=== PATIENT | female | born 1940 | race African-American/Black ===

== ENCOUNTER 2021-01-03 12:47 | Inpatient (IN) ==
[2021-01-03] MEDS ORDERED: ONDANSETRON ODT 4 MG TABLET PO STA (15:15)
[2021-01-03 16:37] LABS: Basophils % 0.3 % (0.0-0.8); Hematocrit 40.6 VOL% (35.7-47.0); Hemoglobin 13.5 GM/DL (12.0-16.0); Lymphocytes # 0.9 10*3/uL (1.4-4.0); Lymphocytes % 31.5 % (21.3-54.2); Mean Corpuscular HGB Conc 33.3 GM/DL (32-36); Mean Corpuscular Volume 88.6 FL (87-102); Mean Platelet Volume 10.9 FL (9.6-12.0); Monocytes % 6.2 % (1.7-12.7); Platelet Count 176 T/CUMM (130-400); Red Blood Count 4.58 MC/CUMM (3.8-5.5); Red Cell Distribution Width 13.3 % (9.3-17.3); White Blood Count 2.9 T/CUMM (4-12)
[2021-01-03 17:00] LABS: Albumin 3.5 G/DL (3.4-5.0); Bilirubin,Total 0.4 MG/DL (0.20-1.00); Calcium 8.8 MG/DL (8.5-10.1); Osmolality,Calculated 268.2 MOS/KG (273-304); Potassium 4.1 MMOL/L (3.5-5.1); Total Protein 7.6 G/DL (6.4-8.2)
[2021-01-03 17:03] LABS: Ferritin 347.7 ng/ml (8-252)
[2021-01-03] MEDS ORDERED: GLUCAGON 1 MG VIAL IM PRN (17:50)
[2021-01-03] MEDS ORDERED: ALUMINUM/MAGNES/SIMETH MAX STR 30 ML UDCUP PO PRN (17:50)
[2021-01-03] MEDS ORDERED: DEXTROSE 50% 25 GM/50 ML VIAL IV PRN (17:50)
[2021-01-03] MEDS ORDERED: AZITHROMYCIN INJ 500 MG in SODIUM CHLORIDE 0.9% 250 ML IV ONE (17:52)
[2021-01-03] MEDS ORDERED: SODIUM CHLORIDE 0.9% 250 ML IV ONE (19:36)
[2021-01-03] MEDS: ASCORBIC ACID 500 MG TABLET PO SCH (22:29)
[2021-01-03] MEDS: FAMOTIDINE 20 MG TABLET PO SCH (22:29)
[2021-01-04 04:16] LABS: Hematocrit 39.7 VOL% (35.7-47.0); Hemoglobin 13.3 GM/DL (12.0-16.0); Immature Granulocytes % 0.3 %; Immature Granulocytes Absolute 0.01 #; Lymphocytes # 1.2 10*3/uL (1.4-4.0); Lymphocytes % 38.9 % (21.3-54.2); Mean Corpuscular HGB Conc 33.5 GM/DL (32-36); Mean Platelet Volume 10.5 FL (9.6-12.0); Monocytes % 5.5 % (1.7-12.7); Neutrophils % 55.3 % (38.7-73.9); Platelet Count 184 T/CUMM (130-400); Red Blood Count 4.46 MC/CUMM (3.8-5.5); Red Cell Distribution Width 13.2 % (9.3-17.3); White Blood Count 3.1 T/CUMM (4-12)
[2021-01-04 04:44] LABS: Hypochromasia Slight; Lymphocytes 45 % (20-55); Microcytosis Slight; Platelet Estimate Adequate; Segmented Neutrophils 52 % (50-85); Total Cells Counted 100
[2021-01-04 04:48] LABS: Calcium 8.8 MG/DL (8.5-10.1); Ferritin 375.4 ng/ml (8-252); Osmolality,Calculated 265.4 MOS/KG (273-304); Potassium 3.7 MMOL/L (3.5-5.1); Thyroid Stimulating Hormone 2.42 uIU/ml (0.358-3.74)
[2021-01-04] MEDS: DEXAMETHASONE 4 MG/1 ML VIAL IV SCH (08:56)
[2021-01-04] MEDS: ASCORBIC ACID 500 MG TABLET PO SCH ×2 (08:58→22:12)
[2021-01-04] MEDS: PANTOPRAZOLE 40 MG TABLET PO SCH (08:58)
[2021-01-04] MEDS: CHOLECALCIFEROL 1,000 UNIT TABLET PO SCH (08:58)
[2021-01-04] MEDS: FAMOTIDINE 20 MG TABLET PO SCH ×2 (08:58→22:12)
[2021-01-04] MEDS: ZINC GLUCONATE 50 MG TABLET PO SCH (08:58)
[2021-01-04] MEDS: ONDANSETRON 4 MG/2 ML VIAL IV PRN ×2 (10:21→23:56)
[2021-01-04] MEDS: IVERMECTIN 3 MG TABLET PO SCH (10:54)
[2021-01-05] MEDS: ONDANSETRON 4 MG/2 ML VIAL IV PRN ×2 (03:15→20:28)
[2021-01-05 06:27] LABS: Hemoglobin 13.1 GM/DL (12.0-16.0); Immature Granulocytes % 0.3 %; Immature Granulocytes Absolute 0.01 #; Lymphocytes % 27.7 % (21.3-54.2); Mean Corpuscular HGB Conc 32.8 GM/DL (32-36); Mean Corpuscular Volume 88.1 FL (87-102); Mean Platelet Volume 10.7 FL (9.6-12.0); Monocytes % 3.8 % (1.7-12.7); Neutrophils % 68.2 % (38.7-73.9); Platelet Count 185 T/CUMM (130-400); Red Blood Count 4.54 MC/CUMM (3.8-5.5); Red Cell Distribution Width 13.1 % (9.3-17.3); White Blood Count 3.7 T/CUMM (4-12)
[2021-01-05 06:46] LABS: Ferritin 402.6 ng/ml (8-252)
[2021-01-05 06:51] LABS: Calcium 9.4 MG/DL (8.5-10.1); Osmolality,Calculated 256.9 MOS/KG (273-304); Potassium 4.1 MMOL/L (3.5-5.1)
[2021-01-05 06:57] LABS: Hypochromasia Slight; Lymphocytes 24 % (20-55); Microcytosis Slight; Platelet Estimate Adequate; Segmented Neutrophils 72 % (50-85); Total Cells Counted 100
[2021-01-05] MEDS: FAMOTIDINE 20 MG TABLET PO SCH ×2 (08:34→20:43)
[2021-01-05] MEDS: CHOLECALCIFEROL 1,000 UNIT TABLET PO SCH (08:34)
[2021-01-05] MEDS: PANTOPRAZOLE 40 MG TABLET PO SCH (08:35)
[2021-01-05] MEDS: IVERMECTIN 3 MG TABLET PO SCH (08:35)
[2021-01-05] MEDS: DEXAMETHASONE 4 MG/1 ML VIAL IV SCH (08:35)
[2021-01-05] MEDS: ZINC GLUCONATE 50 MG TABLET PO SCH (08:35)
[2021-01-05] MEDS: ASCORBIC ACID 500 MG TABLET PO SCH ×2 (08:35→20:44)
[2021-01-05] MEDS ORDERED: MAGNESIUM CITRATE 300 ML BOTTLE PO PRN (15:10)
[2021-01-05] MEDS ORDERED: SODIUM PHOSPHATE ENEMA 133 ML BOTTLE RECTAL PRN (15:10)
[2021-01-05] MEDS ORDERED: SODIUM CHLORIDE 0.9% 1,000 ML IV SCH (15:30)
[2021-01-05] MEDS: ENOXAPARIN 40 MG/0.4 ML SYRINGE SUBCUT SCH (16:48)
[2021-01-05] MEDS: POLYETHYLENE GLYCOL POWDER 17 GM PACK PO SCH (16:48)
[2021-01-05] MEDS ORDERED: ALUM/MAG/SIMETH/LIDO VISC 1:1 30 ML BOTTLE PO ONE (21:39)
[2021-01-05 22:15] LABS: Bacteria,Urine Occasional /HPF (Few); Bilirubin,Urine Negative (Negative); Blood, Urine Negative (Negative); Glucose,Urine (UA) Negative (Negative); Hyaline Casts,Urine 1 /LPF (0-3); Ketones,Urine Negative (Negative); Mucus,Urine Occasional /LPF (Occasional); Nitrite,Urine Negative (Negative); Protein,Urine Negative; RBC,Urine 2 /HPF (0-4); Squamous Epithelial Cell,Urine Occasional /HPF (0-10); Urine Appearance CLEAR (Clear); Urine Color Yellow (Yellow); Urine Specific Gravity 1.006 (1.001-1.035); Urine Urobilinogen < 2.0 EU/DL (0.2-1.0)
[2021-01-06] MEDS: ONDANSETRON 4 MG/2 ML VIAL IV PRN (09:31)
[2021-01-06] MEDS: POLYETHYLENE GLYCOL POWDER 17 GM PACK PO SCH (09:32)
[2021-01-06] MEDS: ENOXAPARIN 40 MG/0.4 ML SYRINGE SUBCUT SCH (09:35)
[2021-01-06] MEDS: DEXAMETHASONE 4 MG/1 ML VIAL IV SCH (09:35)
[2021-01-06] MEDS: ASCORBIC ACID 500 MG TABLET PO SCH ×2 (09:36→20:35)
[2021-01-06] MEDS: CHOLECALCIFEROL 1,000 UNIT TABLET PO SCH (09:36)
[2021-01-06] MEDS: ZINC GLUCONATE 50 MG TABLET PO SCH (09:36)
[2021-01-06] MEDS: FAMOTIDINE 20 MG TABLET PO SCH ×2 (09:36→20:35)
[2021-01-06] MEDS: IVERMECTIN 3 MG TABLET PO SCH (09:51)
[2021-01-06 11:45] LABS: Hematocrit 40.5 VOL% (35.7-47.0); Hemoglobin 13.5 GM/DL (12.0-16.0); Immature Granulocytes % 0.3 %; Immature Granulocytes Absolute 0.01 #; Lymphocytes # 0.5 10*3/uL (1.4-4.0); Lymphocytes % 12.6 % (21.3-54.2); Mean Corpuscular HGB Conc 33.3 GM/DL (32-36); Mean Corpuscular Volume 87.3 FL (87-102); Mean Platelet Volume 10.4 FL (9.6-12.0); Monocytes % 3.5 % (1.7-12.7); Neutrophils % 83.6 % (38.7-73.9); Platelet Count 187 T/CUMM (130-400); Red Blood Count 4.64 MC/CUMM (3.8-5.5)
[2021-01-06 12:01] LABS: Calcium 9.4 MG/DL (8.5-10.1); Osmolality,Calculated 271.1 MOS/KG (273-304); Potassium 3.7 MMOL/L (3.5-5.1)
[2021-01-06 13:02] LABS: Platelet Estimate Normal
[2021-01-06 13:03] LABS: Anisocytosis 1+; Burr Cells Few; Ovalocytes Few
[2021-01-06] MEDS ORDERED: ACETAMINOPHEN 325 MG TABLET PO PRN (15:34)
[2021-01-06] MEDS: cefTRIAXone 1,000 MG in SODIUM CHLORIDE 0.9% 100 ML IV SCH (17:08)
[2021-01-06] MEDS: AZITHROMYCIN 250 MG TABLET PO SCH (17:09)
[2021-01-07] MEDS: cefTRIAXone 1,000 MG in SODIUM CHLORIDE 0.9% 100 ML IV SCH ×2 (08:01→15:56)
[2021-01-07] MEDS: DEXAMETHASONE 4 MG TABLET PO SCH (09:36)
[2021-01-07] MEDS: AZITHROMYCIN 250 MG TABLET PO SCH (09:37)
[2021-01-07] MEDS: FAMOTIDINE 20 MG TABLET PO SCH ×2 (09:37→19:20)
[2021-01-07] MEDS: CHOLECALCIFEROL 1,000 UNIT TABLET PO SCH (09:37)
[2021-01-07] MEDS: ASCORBIC ACID 500 MG TABLET PO SCH ×2 (09:37→19:20)
[2021-01-07] MEDS: ZINC GLUCONATE 50 MG TABLET PO SCH (09:37)
[2021-01-07] MEDS: IVERMECTIN 3 MG TABLET PO SCH (09:38)
[2021-01-07] MEDS: POLYETHYLENE GLYCOL POWDER 17 GM PACK PO SCH (09:38)
[2021-01-07] MEDS: ENOXAPARIN 40 MG/0.4 ML SYRINGE SUBCUT SCH (09:38)
[2021-01-07 10:20] LABS: Albumin 3.1 G/DL (3.4-5.0); Bilirubin,Direct 0.11 MG/DL (0.0-0.20); Bilirubin,Total 1.1 MG/DL (0.20-1.00); Calcium 8.9 MG/DL (8.5-10.1); Osmolality,Calculated 272.8 MOS/KG (273-304); Potassium 3.9 MMOL/L (3.5-5.1); Total Protein 6.5 G/DL (6.4-8.2)
[2021-01-07 12:58] LABS: Hematocrit 40.6 VOL% (35.7-47.0); Hemoglobin 13.3 GM/DL (12.0-16.0); Immature Granulocytes % 0.6 %; Immature Granulocytes Absolute 0.04 #; Lymphocytes # 0.6 10*3/uL (1.4-4.0); Mean Corpuscular HGB Conc 32.8 GM/DL (32-36); Mean Corpuscular Volume 87.7 FL (87-102); Mean Platelet Volume 10.2 FL (9.6-12.0); Monocytes % 2.9 % (1.7-12.7); Neutrophils % 87.5 % (38.7-73.9); Platelet Count 209 T/CUMM (130-400); Red Blood Count 4.63 MC/CUMM (3.8-5.5); Red Cell Distribution Width 12.9 % (9.3-17.3); White Blood Count 6.6 T/CUMM (4-12)
[2021-01-07] MEDS: PANTOPRAZOLE 20 MG TABLET PO SCH (15:49)
[2021-01-08] MEDS: ONDANSETRON 4 MG/2 ML VIAL IV PRN ×2 (03:40→10:06)
[2021-01-08 06:27] LABS: Hematocrit 39.8 VOL% (35.7-47.0); Hemoglobin 13.3 GM/DL (12.0-16.0); Immature Granulocytes % 0.6 %; Immature Granulocytes Absolute 0.05 #; Lymphocytes % 13.4 % (21.3-54.2); Mean Corpuscular HGB Conc 33.4 GM/DL (32-36); Mean Corpuscular Volume 87.3 FL (87-102); Mean Platelet Volume 10.9 FL (9.6-12.0); Monocytes % 2.7 % (1.7-12.7); Neutrophils % 83.3 % (38.7-73.9); Platelet Count 246 T/CUMM (130-400); Red Blood Count 4.56 MC/CUMM (3.8-5.5); Red Cell Distribution Width 12.7 % (9.3-17.3); White Blood Count 7.7 T/CUMM (4-12)
[2021-01-08 06:54] LABS: Calcium 9.4 MG/DL (8.5-10.1); Ferritin 539.7 ng/ml (8-252)
[2021-01-08] MEDS: FAMOTIDINE 20 MG TABLET PO SCH ×2 (08:19→21:10)
[2021-01-08] MEDS: CHOLECALCIFEROL 1,000 UNIT TABLET PO SCH (08:20)
[2021-01-08] MEDS: ASCORBIC ACID 500 MG TABLET PO SCH ×2 (08:20→21:10)
[2021-01-08] MEDS: DEXAMETHASONE 4 MG TABLET PO SCH (08:20)
[2021-01-08] MEDS: IVERMECTIN 3 MG TABLET PO SCH (08:21)
[2021-01-08] MEDS: PANTOPRAZOLE 20 MG TABLET PO SCH (08:21)
[2021-01-08] MEDS: ZINC GLUCONATE 50 MG TABLET PO SCH (08:21)
[2021-01-08] MEDS: ENOXAPARIN 40 MG/0.4 ML SYRINGE SUBCUT SCH (08:21)
[2021-01-08] MEDS: AZITHROMYCIN 250 MG TABLET PO SCH (08:21)
[2021-01-08] MEDS: POLYETHYLENE GLYCOL POWDER 17 GM PACK PO SCH (08:21)
[2021-01-08] MEDS ORDERED: REMDESIVIR 200 MG in SODIUM CHLORIDE 0.9% 210 ML IV ONE (11:00)
[2021-01-08] MEDS: cefTRIAXone 1,000 MG in SODIUM CHLORIDE 0.9% 100 ML IV SCH (16:47)
[2021-01-09 05:14] LABS: Basophils % 0.1 % (0.0-0.8); Hematocrit 38.8 VOL% (35.7-47.0); Immature Granulocytes % 0.7 %; Immature Granulocytes Absolute 0.06 #; Lymphocytes # 0.9 10*3/uL (1.4-4.0); Lymphocytes % 10.4 % (21.3-54.2); Mean Corpuscular HGB Conc 33.5 GM/DL (32-36); Mean Platelet Volume 10.4 FL (9.6-12.0); Monocytes % 2.5 % (1.7-12.7); Neutrophils % 86.3 % (38.7-73.9); Platelet Count 249 T/CUMM (130-400); Red Blood Count 4.46 MC/CUMM (3.8-5.5); Red Cell Distribution Width 12.8 % (9.3-17.3); White Blood Count 8.5 T/CUMM (4-12)
[2021-01-09 05:52] LABS: Calcium 9.5 MG/DL (8.5-10.1); Ferritin 546.2 ng/ml (8-252); Osmolality,Calculated 266.2 MOS/KG (273-304); Potassium 3.7 MMOL/L (3.5-5.1)
[2021-01-09] MEDS: DEXAMETHASONE 4 MG TABLET PO SCH (10:38)
[2021-01-09] MEDS: ENOXAPARIN 40 MG/0.4 ML SYRINGE SUBCUT SCH (10:38)
[2021-01-09] MEDS: REMDESIVIR 100 MG in SODIUM CHLORIDE 0.9% 100 ML IV SCH (10:39)
[2021-01-09] MEDS: FAMOTIDINE 20 MG TABLET PO SCH ×2 (10:39→20:55)
[2021-01-09] MEDS: PANTOPRAZOLE 40 MG VIAL IV SCH (10:39)
[2021-01-09] MEDS: POLYETHYLENE GLYCOL POWDER 17 GM PACK PO SCH (10:39)
[2021-01-09] MEDS: ASCORBIC ACID 500 MG TABLET PO SCH ×2 (10:40→20:55)
[2021-01-09] MEDS: ZINC GLUCONATE 50 MG TABLET PO SCH (10:40)
[2021-01-09] MEDS: CHOLECALCIFEROL 1,000 UNIT TABLET PO SCH (10:40)
[2021-01-09] MEDS: AZITHROMYCIN 250 MG TABLET PO SCH (10:40)
[2021-01-09 11:13] LABS: Alanine Aminotransferase 18 U/L (13-56); Alkaline Phosphatase 50 U/L (45-117); Aspartate Amino Transferase 31 U/L (0-37); Bilirubin,Direct < 0.100 MG/DL (0.0-0.20); Bilirubin,Indirect 0.5 MG/DL (0.0-1.0); Total Protein 7.1 G/DL (6.4-8.2)
[2021-01-09] MEDS: cefTRIAXone 1,000 MG in SODIUM CHLORIDE 0.9% 100 ML IV SCH (15:31)
[2021-01-10 05:51] LABS: Basophils % 0.2 % (0.0-0.8); Hematocrit 40.6 VOL% (35.7-47.0); Hemoglobin 13.4 GM/DL (12.0-16.0); Immature Granulocytes % 0.9 %; Immature Granulocytes Absolute 0.05 #; Lymphocytes # 0.9 10*3/uL (1.4-4.0); Lymphocytes % 16.6 % (21.3-54.2); Mean Corpuscular Volume 88.3 FL (87-102); Mean Platelet Volume 10.8 FL (9.6-12.0); Monocytes % 5.1 % (1.7-12.7); Neutrophils % 77.2 % (38.7-73.9); Platelet Count 298 T/CUMM (130-400); White Blood Count 5.7 T/CUMM (4-12)
[2021-01-10 06:06] LABS: Alanine Aminotransferase 16 U/L (13-56); Alkaline Phosphatase 52 U/L (45-117); Aspartate Amino Transferase 27 U/L (0-37); Bilirubin,Direct < 0.100 MG/DL (0.0-0.20); Bilirubin,Indirect 0.3 MG/DL (0.0-1.0); Total Protein 7.2 G/DL (6.4-8.2)
[2021-01-10 06:10] LABS: Calcium 9.6 MG/DL (8.5-10.1); Ferritin 611.8 ng/ml (8-252); Osmolality,Calculated 274.8 MOS/KG (273-304); Potassium 3.8 MMOL/L (3.5-5.1)
[2021-01-10] MEDS: ASCORBIC ACID 500 MG TABLET PO SCH ×2 (10:03→20:10)
[2021-01-10] MEDS: DEXAMETHASONE 4 MG TABLET PO SCH (10:03)
[2021-01-10] MEDS: ENOXAPARIN 40 MG/0.4 ML SYRINGE SUBCUT SCH (10:04)
[2021-01-10] MEDS: PANTOPRAZOLE 40 MG VIAL IV SCH (10:04)
[2021-01-10] MEDS: FAMOTIDINE 20 MG TABLET PO SCH ×2 (10:04→20:10)
[2021-01-10] MEDS: CHOLECALCIFEROL 1,000 UNIT TABLET PO SCH (10:04)
[2021-01-10] MEDS: AZITHROMYCIN 250 MG TABLET PO SCH (10:04)
[2021-01-10] MEDS: POLYETHYLENE GLYCOL POWDER 17 GM PACK PO SCH (10:04)
[2021-01-10] MEDS: ZINC GLUCONATE 50 MG TABLET PO SCH (10:05)
[2021-01-10] MEDS: REMDESIVIR 100 MG in SODIUM CHLORIDE 0.9% 100 ML IV SCH (10:17)
[2021-01-10] MEDS: cefTRIAXone 1,000 MG in SODIUM CHLORIDE 0.9% 100 ML IV SCH (16:47)
[2021-01-11 06:32] LABS: Hematocrit 39.2 VOL% (35.7-47.0); Immature Granulocytes % 0.9 %; Immature Granulocytes Absolute 0.04 #; Lymphocytes # 1.1 10*3/uL (1.4-4.0); Lymphocytes % 25.9 % (21.3-54.2); Mean Corpuscular HGB Conc 33.2 GM/DL (32-36); Mean Corpuscular Volume 86.7 FL (87-102); Mean Platelet Volume 10.1 FL (9.6-12.0); Monocytes % 5.8 % (1.7-12.7); Neutrophils % 67.4 % (38.7-73.9); Platelet Count 352 T/CUMM (130-400); Red Blood Count 4.52 MC/CUMM (3.8-5.5); Red Cell Distribution Width 12.8 % (9.3-17.3); White Blood Count 4.3 T/CUMM (4-12)
[2021-01-11 06:49] LABS: Albumin 2.9 G/DL (3.4-5.0); Bilirubin,Direct 0.11 MG/DL (0.0-0.20); Bilirubin,Indirect 0.4 MG/DL (0.0-1.0); Bilirubin,Total 0.5 MG/DL (0.20-1.00)
[2021-01-11 07:01] LABS: Calcium 9.6 MG/DL (8.5-10.1); Osmolality,Calculated 279.5 MOS/KG (273-304); Potassium 3.5 MMOL/L (3.5-5.1)
[2021-01-11 07:12] LABS: Lymphocytes 20 % (20-55); Platelet Estimate Normal; Segmented Neutrophils 76 % (50-85); Total Cells Counted 100
[2021-01-11] MEDS: DEXAMETHASONE 4 MG TABLET PO SCH (09:07)
[2021-01-11] MEDS: PANTOPRAZOLE 40 MG VIAL IV SCH (09:08)
[2021-01-11] MEDS: POLYETHYLENE GLYCOL POWDER 17 GM PACK PO SCH (09:08)
[2021-01-11] MEDS: REMDESIVIR 100 MG in SODIUM CHLORIDE 0.9% 100 ML IV SCH (09:08)
[2021-01-11] MEDS: FAMOTIDINE 20 MG TABLET PO SCH (09:08)
[2021-01-11] MEDS: ASCORBIC ACID 500 MG TABLET PO SCH (09:08)
[2021-01-11] MEDS: ENOXAPARIN 40 MG/0.4 ML SYRINGE SUBCUT SCH (09:08)
[2021-01-11] MEDS: CHOLECALCIFEROL 1,000 UNIT TABLET PO SCH (09:08)
[2021-01-11] MEDS: ZINC GLUCONATE 50 MG TABLET PO SCH (09:08)
[2021-01-11] MEDS ORDERED: POTASSIUM CHLORIDE 20 MEQ TABLET PO ONE (10:23)
[2021-01-11 12:36] VITALS: BP 177/93
[2021-01-11] MEDS: cefTRIAXone 1,000 MG in SODIUM CHLORIDE 0.9% 100 ML IV SCH (15:38)
[2021-01-12] MEDS ORDERED: PANTOPRAZOLE 40 MG TABLET PO SCH (09:00)
== END 2021-01-11 17:34 | disposition home or self-care (01) | DRG 177 ==
LOC: N.EDINP 12:47 → N.ED 12:47 → SUATTDRO 17:50 → N.EDINP 01-04 11:50 → N.2E 01-04 12:39
PROVIDERS: ADMIT Internal Medicine; ATTEND Hospitalist